=== PATIENT | female | born 1970 | race African-American/Black ===

== ENCOUNTER 2017-11-13 03:21 | Emergency (ER) | payer OTHER ==
[2017-11-13 04:04] LABS: Basophils % (Auto) 0.4 % (0.0-1.8); Eosinophils # (Auto) 0.2 K/mm3 (0.0-0.4); Eosinophils % (Auto) 1.6 % (0.0-4.3); Hematocrit 26.2 % (30.3-42.9); Lymphocytes % (Auto) 17.1 % (13.4-35.0); Mean Corpuscular HGB Conc 31 % (30-34); Monocytes # (Auto) 1.2 K/mm3 (0.0-0.8); Monocytes % (Auto) 10.1 % (0.0-7.3); Platelet Count 432 K/mm3 (140-440)
[2017-11-13 04:09] LABS: Mean Corpuscular Hemoglobin 21 pg (28-32); Mean Corpuscular Volume 69 fl (79-97); Red Cell Distribution Width 20.4 % (13.2-15.2)
[2017-11-13 04:21] LABS: Bilirubin,Urine NEG (Negative); Blood,Urine LG (Negative); Color,Urine Yellow (Yellow); Mucus,Urine FEW /HPF; Urobilinogen,Urine < 2.0 mg/dL (<2.0)
[2017-11-13 04:22] LABS: RBC,Urine > 182.0 /HPF (0.0-6.0)
[2017-11-13 04:27] LABS: Alanine Aminotransferase 7 units/L (7-56); Albumin 3.5 g/dL (3.9-5); BUN/Creatinine Ratio 28; Blood Urea Nitrogen 14 mg/dL (7-17); Calcium 8.3 mg/dL (8.4-10.2); Hemolysis Index 5
[2017-11-13] MEDS ORDERED: TYLENOL PO ONE (07:04)
[2017-11-13] MEDS ORDERED: TYLENOL ONE (07:05)
[2017-11-13] MEDS ORDERED: NACL 0.9% 1000 ML 1,000 ML IV ONE (08:03)
[2017-11-13] MEDS ORDERED: TORADOL IV ONE (08:03)
[2017-11-13] MEDS ORDERED: ROCEPHIN/NS 1 GM/50 ML 1 GM/50 ML BAG IV ONE (08:07)
[2017-11-13] MEDS ORDERED: cefTRIAXone 1 GM in NACL 0.9% 20 ML IV ONE (08:15)
--- NOTE | 2017-11-13 09:51 | Ultrasound Report ---
FINAL REPORT EXAM: US PELVIC COMPLETE HISTORY: pelvic pain UTI anemia TECHNIQUE: Transabdominal and transvaginal pelvic ultrasound. PRIORS: None currently available. FINDINGS: Uterus: 10.3 x 5.0 x 5.7 cm. Homogeneous. Within normal. Anteverted. Endometrium: 19.8 mm. Echogenic. Thickened. No distinct lesions. Right ovary: 5.1 x 3.0 x 4.9 cm. Simple appearing cyst measuring 5.1 x 3.0 x 4.9 cm. Ovarian flow noted. Left ovary: 2.9 x 2.5 x 2.1 cm. Follicular type cyst measuring 2.1 cm. Ovarian flow noted. No adnexal lesions. No significant free fluid. IMPRESSION: Simple appearing right ovarian cyst. Follicular type cysts in the left ovary. Thickened echogenic endometrium. Nonspecific. A distinct lesions not evident.
--- NOTE | 2017-11-13 09:53 | Ultrasound Report ---
FINAL REPORT EXAM: US RENAL BILAT HISTORY: pelvic pain UTI anemia TECHNIQUE: Renal ultrasound. PRIORS: None currently available. FINDINGS: RIGHT KIDNEY: 10.9 x 3.9 x 4.5 cm. Cortex measures 1.3 cm. No lesion. No hydronephrosis. No stone. Normal echotexture. LEFT KIDNEY: 11.4 x 4.7 x 4.5 cm. Cortex measures 1.6 cm. Simple left lower pole cyst measures 1.8 cm. No hydronephrosis. No stone. Normal echotexture. BLADDER: Limited images are unremarkable. No distinct lesions. No obvious wall thickening. IMPRESSION: Simple left ovarian cyst.
[2017-11-13 10:20] VITALS: BP 112/71
--- NOTE | 2017-11-13 10:56 | Emergency Department Report ---
ED General Adult HPI - General Chief complaint: Abdominal Pain Stated complaint: ABDOMINAL PAIN Time Seen by Provider: 11/13/17 07:50 Source: patient Mode of arrival: Ambulatory Limitations: Language Barrier - History of Present Illness Initial comments: Patient complains of bilateral pelvic and suprapubic abdominal discomfort for the last few days. She does not speak [place]. However there is a gentleman translate amply. She denies fever or chills. She denies any chronic anemia but does not seem to be particularly medically literate about her past medical history. Her periods are "moderate". She has not been previously placed on iron. She's not been on any recent antibiotics. He's had no vomiting, diarrhea nor fever or chills. No prior surgery. -: Gradual Location: abdomen Radiation: non-radiation Severity scale (0 -10): 0 Quality: aching Consistency: intermittent Improves with: none Worsens with: none Associated Symptoms: denies other symptoms Treatments Prior to Arrival: none - Related Data Previous Rx's Medication Instructions Recorded Last Taken Type Cefuroxime [Ceftin] 250 mg PO Q12H #14 tablet 11/13/17 Unknown Rx Ferrous Gluconate [Fergon 325 MG 325 mg PO TID #30 tablet 11/13/17 Unknown Rx tab] HYDROcodone/APAP 5-325 [[place] 1 each PO Q6HR PRN #14 tablet 11/13/17 Unknown Rx 5/325] Allergies Allergy/AdvReac Type Severity Reaction Status Date / Time No Known Allergies Allergy Unverified 11/13/17 03:32 ED Review of Systems ROS: Stated complaint: ABDOMINAL PAIN Other details as noted in HPI Constitutional: denies: chills, fever Eyes: denies: eye pain, eye discharge, vision change ENT: denies: ear pain, throat pain Respiratory: denies: cough, shortness of breath, wheezing Cardiovascular: denies: chest pain, palpitations Endocrine: no symptoms reported Gastrointestinal: abdominal pain. denies: nausea, diarrhea Genitourinary: denies: urgency, dysuria, discharge Musculoskeletal: denies: back pain, joint swelling, arthralgia Skin: denies: rash, lesions Neurological: denies: headache, weakness, paresthesias Psychiatric: denies: anxiety, depression Hematological/Lymphatic: denies: easy bleeding, easy bruising ED Past Medical Hx - Past Medical History Previous Medical History?: No - Surgical History Past Surgical History?: No - Social History Smoking Status: Never Smoker Substance Use Type: None - Medications Home Medications: Home Medications Medication Instructions Recorded Confirmed Last Taken Type Cefuroxime [Ceftin] 250 mg PO Q12H #14 tablet 11/13/17 Unknown Rx Ferrous Gluconate [Fergon 325 MG 325 mg PO TID #30 tablet 11/13/17 Unknown Rx tab] HYDROcodone/APAP 5-325 [[place] 1 each PO Q6HR PRN #14 tablet 11/13/17 Unknown Rx 5/325] ED Physical Exam - General Limitations: Language Barrier General appearance: alert, in no apparent distress - Head Head exam: Present: atraumatic, normocephalic - Eye Eye exam: Present: normal appearance. Absent: scleral icterus - ENT ENT exam: Present: mucous membranes moist - Neck Neck exam: Present: normal inspection - Respiratory Respiratory exam: Present: normal lung sounds bilaterally. Absent: respiratory distress - Cardiovascular Cardiovascular Exam: Present: regular rate, normal rhythm. Absent: systolic murmur, diastolic murmur, rubs, gallop - GI/Abdominal GI/Abdominal exam: Present: soft, normal bowel sounds. Absent: distended, tenderness, guarding, rebound, rigid, organomegaly, mass, bruit, pulsatile mass , hernia - Extremities Exam Extremities exam: Present: normal inspection - Back Exam Back exam: Present: normal inspection. Absent: CVA tenderness (R), CVA tenderness (L), muscle spasm, paraspinal tenderness, vertebral tenderness - Neurological Exam Neurological exam: Present: alert, oriented X3, CN II-XII intact. Absent: motor sensory deficit - Psychiatric Psychiatric exam: Present: normal affect, normal mood - Skin Skin exam: Present: warm, dry, intact, normal color. Absent: rash ED Course Vital Signs 11/13/17 11/13/17 11/13/17 03:29 05:33 05:40 Temperature 98.3 F 98.2 F Pulse Rate 89 94 H Respiratory 17 16 Rate Blood Pressure 111/72 108/61 Blood Pressure 108/61 [Left] O2 Sat by Pulse 99 100 Oximetry 11/13/17 11/13/17 11/13/17 05:41 06:00 07:04 Temperature Pulse Rate Respiratory 16 Rate Blood Pressure 101/58 103/65 Blood Pressure [Left] O2 Sat by Pulse 100 Oximetry 11/13/17 11/13/17 11/13/17 07:08 08:08 09:13 Temperature Pulse Rate Respiratory 20 16 16 Rate Blood Pressure Blood Pressure [Left] O2 Sat by Pulse Oximetry 11/13/17 11/13/17 09:43 10:20 Temperature 98.1 F Pulse Rate 83 Respiratory 16 16 Rate Blood Pressure Blood Pressure 112/71 [Left] O2 Sat by Pulse Oximetry - Reevaluation(s) Reevaluation #1: Patient was given ceftriaxone, analgesia and fluids. He is discharged in improved condition. Her ultrasound studies were essentially reassuring. She' ll be continued on an antibiotic, analgesic and iron. She will be referred to [facility]. 11/13/17 10:56 ED Medical Decision Making - Lab Data Result diagrams: 11/13/17 03:41 11/13/17 03:41 Laboratory Results - last 24 hr 11/13/17 11/13/17 11/13/17 03:41 03:41 03:41 WBC 11.8 H RBC 3.80 Hgb 8.0 L Hct 26.2 L MCV 69 L MCH 21 L MCHC 31 RDW 20.4 H Plt Count 432 Lymph % (Auto) 17.1 [place] % (Auto) 10.1 H Eos % (Auto) 1.6 Baso % (Auto) 0.4 Lymph # 2.0 [place] # 1.2 H Eos # 0.2 Baso # 0.0 Seg Neutrophils % 70.8 H Seg Neutrophils # 8.4 H Sodium 135 L Potassium 4.0 Chloride 98.0 Carbon Dioxide 23 Anion Gap 18 BUN 14 Creatinine 0.5 L Estimated GFR > 60 BUN/Creatinine Ratio 28 Glucose 121 H Calcium 8.3 L Total Bilirubin < 0.20 AST 18 ALT 7 Alkaline Phosphatase 62 Total Protein 7.1 Albumin 3.5 L Albumin/Globulin Ratio 1.0 Lipase HCG, Qual Negative Urine Color Urine Turbidity Urine pH Ur Specific [place] Urine Protein Urine Glucose (UA) Urine Ketones Urine Blood Urine Nitrite Urine Bilirubin Urine Urobilinogen Ur Leukocyte Esterase Urine WBC (Auto) Urine RBC (Auto) U Epithel Cells (Auto) Urine Mucus 11/13/17 11/13/17 03:41 Unknown WBC RBC Hgb Hct MCV MCH MCHC RDW Plt Count Lymph % (Auto) [place] % (Auto) Eos % (Auto) Baso % (Auto) Lymph # [place] # Eos # Baso # Seg Neutrophils % Seg Neutrophils # Sodium Potassium Chloride Carbon Dioxide Anion Gap BUN Creatinine Estimated GFR BUN/Creatinine Ratio Glucose Calcium Total Bilirubin AST ALT Alkaline Phosphatase Total Protein Albumin Albumin/Globulin Ratio Lipase 59 HCG, Qual Urine Color Yellow Urine Turbidity Slightly-cloudy Urine pH 7.0 Ur Specific [place] 1.023 Urine Protein 100 mg/dl Urine Glucose (UA) Neg Urine Ketones Neg Urine Blood Lg Urine Nitrite Neg Urine Bilirubin Neg Urine Urobilinogen < 2.0 Ur Leukocyte Esterase Sm Urine WBC (Auto) 63.0 H Urine RBC (Auto) > 182.0 U Epithel Cells (Auto) 2.0 Urine Mucus Few - Radiology Data Radiology results: report reviewed interpreted by me: Left simple ovarian cyst and thickened endometrium Critical care attestation.: If time is entered above; I have spent that time in minutes in the direct care of this critically ill patient, excluding procedure time. ED Disposition Clinical Impression: Dysfunctional uterine bleeding Acute cystitis Qualifiers: Hematuria presence: with hematuria Qualified Code(s): N30.01 - Acute cystitis with hematuria Iron deficiency anemia Qualifiers: Iron deficiency anemia type: chronic blood loss Qualified Code(s): D50.0 - Iron deficiency anemia secondary to blood loss (chronic) Ovarian cyst Qualifiers: Laterality: left Qualified Code(s): N83.202 - Unspecified ovarian cyst, left side Disposition: TO HOME OR SELFCARE Is pt being admited?: No Does the pt Need Aspirin: No Condition: Stable Instructions: Abdominal Pain (ED), Urinary Tract Infection in Women (ED), Dysfunctional Uterine Bleeding (ED), Ovarian Cyst (ED) Additional Instructions: Rx iron, something for pain and an antibiotic. Follow-up with analysis manager is recommended.See referral. Return to the emergency department any acute change or problems as needed. Follow up on urine culture results in 2-3 days. Prescriptions: Cefuroxime [Ceftin] 250 mg PO Q12H #14 tablet Ferrous Gluconate [Fergon 325 MG tab] 325 mg PO TID #30 tablet HYDROcodone/APAP 5-325 [[place] 5/325] 1 each PO Q6HR PRN #14 tablet PRN Reason: Pain Referrals: PRIMARY CARE, [Primary Care Provider] - 3-5 Days [facility] [Provider Group] - 2-3 Days Time of Disposition: 10:58
== END 2017-11-13 12:07 | disposition home or self-care (01) ==
LOC: ED 03:21
DX: N93.8 Other specified abnormal uterine and vaginal bleeding (principal); N83.202 Unspecified ovarian cyst, left side; N30.00 Acute cystitis without hematuria; D50.0 Iron deficiency anemia secondary to blood loss (chronic)
CPT/HCPCS: 36415; 76770; 76830; 76856; 80053; 81001; 83690; 84703; 85025; 87086; 96374; 96375; 99284; J0696; J1885; J7030